=== PATIENT | male | born 1970 | race Caucasian/White ===

== ENCOUNTER 2021-03-03 00:02 | Emergency (ER) | payer OTHER ==
[2021-03-03] MEDS ORDERED: Morphine 4 MG/ML Syringe IVPUSH ONE ×2 (01:19→01:40)
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
[2021-03-03] MEDS ORDERED: oxyCODONE ER 10 MG TAB.ER PO ONE (02:58)
--- NOTE | 2021-03-03 08:17 | CR ---
Pelvis and left hip: AP view of the pelvis was obtained as well as 2 views of the left hip. Comparison: Subsequent CT study of the pelvis performed on the same day. Minimal lucent line is seen on the AP view of the left hip. This correlates to subsequent CT study of fracture. Joint spaces are preserved. Degenerative change is seen within the sacroiliac joints. No additional fracture or other abnormality is appreciated. Impression: 1. Findings correlating to fracture seen on subsequent CT study within the anterior acetabulum. 2. Mild degenerative change noted within the pubic symphysis. 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
--- NOTE | 2021-03-03 08:50 | CT ---
CT pelvis Technique: Multiple axial sections were obtained through the pelvis and hips. Reconstructed coronal and sagittal images were obtained. Comparison: Prior pelvis and left hip plain film study performed earlier on the same day (12:47 AM). Findings: Degenerative change is noted within both sacroiliac joints. Fracture is seen involving the anterior acetabulum which shows articular extension. Minimal displacement is seen. No additional fracture is noted. No acute soft tissue abnormality is appreciated. Impression: 1. Fracture within the anterior acetabulum with joint extension. Minimal displacement is noted. This is noted on the left side. Diagnostic code #3 I agree with preliminary report from [facility], finalized on 03/03/21, 3:10 AM RN NIGHT, code 1
== END 2021-03-03 03:30 | disposition home or self-care (01) ==
LOC: JD.ED 00:02
DX: S32.512A Fracture of superior rim of left pubis, initial encounter for closed fracture (principal); Z88.8 Allergy status to other drugs, medicaments and biological substances; Z72.0 Tobacco use; W00.0XXA Fall on same level due to ice and snow, initial encounter
CPT/HCPCS: 36415; 72192; 73502; 85025; 96374; 99284; A9270; J2270; 99285